=== PATIENT | female | born 1965 | race African-American/Black ===

== ENCOUNTER → 2017-12-06 | Outpatient (CLI) | payer BC, OTHER ==
[~2017-12-06] MED LIST: FLAGYL500 MG PO; IBUPROFEN 600600 M1 PO; IBUPROFEN 800800 M1 PO; IBUPROFEN 800800 MG PO; MEDROL DOSPAK21 TAB PO; NAPROSYN500 MG PO; NORFLEX100 MG PO; ZPAK PO
== END ==
LOC: RAD 03:18
DX: Z12.31 Encounter for screening mammogram for malignant neoplasm of breast (principal); D25.9 Leiomyoma of uterus, unspecified

== ENCOUNTER 2018-04-28 10:07 | Emergency (ER) | payer BC, OTHER ==
[~2018-04-28] VITALS: Ht 152.4 cm; Wt 59.0 kg
[2018-04-28] MEDS ORDERED: IBUPROFEN200 MG PO (10:37)
[2018-04-28 10:42] LABS: ABSOLUTE NEUTROPHILS 4.5 thou/uL (1.4-8.2); BASOPHILS 0.5 % (0.0-2.0); EOSINOPHILS 0.7 % (0.0-3.0); HEMATOCRIT 39.3 % (37.0-47.0); HEMOGLOBIN 13.6 gm/dL (12.0-15.0); LYMPHOCYTES 28.9 % (24.0-44.0); MCH 32.5 pg (26.0-34.0); MCHC 34.5 g/dL (28.0-37.0); MCV 94.1 fL (80.0-100.0); MONOCYTES 10.6 % (1.0-8.0); PLATELET COUNT 241 thou/uL (150-400); POLYS 59.3 % (36.0-66.0); RBC 4.18 mil/uL (4.20-5.00); RDW 12.8 % (10.5-14.5); WBC 7.6 thou/uL (4.0-11.0)
[2018-04-28 10:46] LABS: CALCIUM 8.8 mg/dL (8.5-10.1); CREATININE 0.7 mg/dL (0.6-1.0)
[2018-04-28 10:52] LABS: ALBUMIN 3.6 g/dL (3.4-5.0); TOTAL BILIRUBIN 0.4 mg/dL (<0.1-1.0); TOTAL PROTEIN 7.8 g/dL (6.4-8.2)
[2018-04-28 11:36] LABS: URINE BILIRUBIN NEGATIVE (Negative); URINE BLOOD 1+ (Negative); URINE CLARITY CLEAR; URINE COLOR YELLOW; URINE GLUCOSE-RANDOM* NEGATIVE (Negative); URINE KETONES NEGATIVE (Negative); URINE LEUKOCYTES-REFLEX NEGATIVE (Negative); URINE NITRITE-REFLEX NEGATIVE (Negative); URINE PROTEIN (DIPSTICK) NEGATIVE (Negative); URINE UROBILINOGEN 0.2 E.U./dl (0.2-1.0)
[2018-04-28 11:47] LABS: BACTERIA-REFLEX None Seen /HPF (None Seen); CASTS None Seen /LPF (None Seen); CRYSTALS None Seen /LPF (None Seen); SQUAMOUS 0-3 Few /LPF (0-3); URINE RBC 0-2 Rare /HPF (0-2); URINE WBC-REFLEX None Seen /HPF (0-5)
[2018-04-28] MEDS ORDERED: NORCO 5-325 TA1 EACH PO (13:18)
[2018-04-28] MEDS ORDERED: IBUPROFEN 600600 M1 PO (13:18)
[2018-04-28 13:25] VITALS: BP 130/75
[2018-04-28] MEDS ORDERED: FLAGYL500 M1 PO (13:26)
== END 2018-04-28 13:30 | disposition home or self-care (01) ==
LOC: ER 10:07
PROVIDERS: Physician Assistant
DX: D25.9 Leiomyoma of uterus, unspecified (principal); Z98.890 Other specified postprocedural states

== ENCOUNTER 2018-05-29 05:38 | Day surgery (SDC) | payer BC, OTHER ==
[~2018-05-29] VITALS: Ht 154.9 cm; Wt 61.2 kg
--- NOTE | ~2018-05-29 | O ---
[facility] [place] [address] [place] [address] OPERATIVE REPORT Name: ELINA JON Room #: 150-12 [facility]..#: [id number] Admission: 05/29/18 Attend Phys: Yaron Gallegos MD Discharge: Date of : 63 Report #: [id number] THIS REPORT FOR: //name// CC: Yaron Lau DATE OF SERVICE: 05/29/2018 PREOPERATIVE DIAGNOSIS: Abnormal uterine bleeding, endometrial fluid. POSTOPERATIVE DIAGNOSIS: Abnormal uterine bleeding, endocervical polyps. SURGEON: Yaron Gallegos M.D. WIND UP WORKER: None. ANESTHESIA: General. ESTIMATED BLOOD LOSS: 15 mL. PROCEDURE: Exam under anesthesia, MyoSure hysteroscopic endocervical polypectomy, dilatation and curettage. SPECIMENS: 1. Endocervical MyoSure curettings. 2. Endometrial MyoSure curettings with sharp curettings. COMPLICATIONS: None. FINDINGS: Exam under anesthesia revealed a globular irregular fibroid uterus measuring approximately 18-19 weeks' size with no palpable adnexal masses. Hysteroscopically, there were multiple endocervical polyps and irregular polypoid tissue with some neovascularization suspicious for malignancy. The endometrial cavity appeared normal with no evidence of submucosal fibroids or endometrial polyps or hyperplasia. Uterus sounded to a depth of 10 cm. DESCRIPTION OF PROCEDURE: The patient was seen in the preoperative holding area where consent was obtained for surgery. She was then brought to the operating room, administered general anesthesia, prepped and draped in a sterile fashion in dorsal lithotomy position. The anterior lip of the cervix was grasped using a single tooth tenaculum. Distending medium was normal saline and the hysteroscope was inserted under direct hysteroscopic vision with hysteroscopic findings dictated as above. The hysteroscope was removed and replaced by a MyoSure hysteroscope, which was inserted under direct hysteroscopic vision after first sounding the uterus to a depth of 10 cm and then dilating the cervix a bit [facility] [address] [address] OPERATIVE REPORT Name: ELINA JON Room #: 150-12 [facility].#: [id number] Admission: 05/29/18 Attend Phys: Yaron Gallegos MD Discharge: Date of : 63 Report #: [id number] to a #20 dilator. The MyoSure unit was then used to morcellate and remove the endocervical polyps and polypoid tissue. This was sent for pathology in a separate specimen as the sock was changed in the retrieval mechanism. The MyoSure unit was then used to perform a curettage of the entirety of the uterine corpus and lateral sides of the fundus under direct hysteroscopic vision. This tissue was sent as separate specimen. The cervix was then further dilated and a smooth sharp curette was then used to obtain curettings from the uterine fundus and also from the entirety of the endometrial cavity. These were sent for pathology as well with the endometrial curettings from the MyoSure unit. There was some mild bleeding after removal of the hysteroscope. This bleeding was emanating from the endocervix and sponge on a stick assisted in achieving hemostasis. All instrument and pad counts were correct. The patient was brought out of general anesthesia, taken to the recovery room. She was to be discharged home with specific instructions as to diet and activity and to call Dr. Gallegos should there be any fever, increasing pain or increasing bleeding. She was to see him in 8 days in the office for followup. By: [id number] Yaron Gallegos MD /nt
--- NOTE | ~2018-05-29 | PATH ---
[facility] [place] [address] PATHOLOGY RPT PROCEDURE Name: ELINA LOVING Room #: DEP [facility] M.R.#: [id number] Admission: 05/29/18 Date of : 63 Discharge: 05/29/18 Report #: [id number] Path Case #: [id number] [facility] Accession Number: [id number] . 01 Material submitted: . PART A: ENDOMETRIAL CURETTINGS PART B: ENDOCERVICAL CURETTINGS . 01 Clinical history: . Fibroids, menorrhagia, irregular cycles . 02 Diagnosis: A. Endometrium, "endometrial curettings": - Focally polypoid disordered proliferative phase endometrium with glandular and stromal breakdown without any evidence of hyperplasia or malignancy. . B. Endocervical curettings: - Endocervical/lower uterine segment polyp with focal crowded glands without any evidence of hyperplasia, dysplasia or malignancy. (SHA:jesse; 05/30/2018) QMS/05/30/2018 . 02 Electronically signed: . Nirmal Glez MD, Pathologist NPI- [id number] . 01 Gross description: . A. Received in formalin labeled "Elina Loving, endometrial curettings," is blood-tinged mucoid material containing small fragments of peguero membranous tissue, measuring 1.6 x 1.5 x 0.3 cm in aggregate dimensions. The specimen is filtered and submitted entirely in cassette A1. . B. Received in formalin labeled "Elina Loving, endocervical curettings," is blood-tinged mucoid material containing small fragments of peguero membranous tissue, measuring 2.2 x 0.9 x 0.3 cm in aggregate dimensions. The specimen is filtered and submitted entirely in cassette B1. (TSD; 05/29/2018) TOB/TOB . 02 Pathologist provided ICD-10: N85.9, N84.1, N92.0, N92.6 . 02 CPT . 591162, 176766 Specimen Comment: A courtesy [place] [address] PATHOLOGY RPT PROCEDURE Name: ELISEO LOVINGTARYN Schmitt Room #: DEP [facility] M.R.#: [id number] Admission: 05/29/18 Date of : 63 Discharge: 05/29/18 Report #: [id number] Path Case #: [id number] Specimen Comment: [phone], . Specimen Comment: Report sent to / DR BREWSTER Specimen Comment: A duplicate report has been generated due to demographic updates. Performed at: [address], [place], [place] [id number] MD Sim Chavis MD Phone: [phone] Performed at: [address] [id number] MD Diamante Charles MD Phone: [phone]
[~2018-05-29 05:38] MED LIST changes: +FLAGYL500 M1 PO; +IBUPROFEN200 MG PO; +NORCO 5-325 TA1 EACH PO; +PRILOSEC OTC20 MG PO
[2018-05-29 08:09] VITALS: BP 130/71
[2018-05-29 11:54] VITALS: BP 130/71
== END 2018-05-29 12:10 | disposition home or self-care (01) ==
LOC: TBA 05:38 → OR 05:38
DX: N93.9 Abnormal uterine and vaginal bleeding, unspecified (principal); N84.1 Polyp of cervix uteri; K21.9 Gastro-esophageal reflux disease without esophagitis; Z98.51 Tubal ligation status; Z98.890 Other specified postprocedural states; Z79.899 Other long term (current) drug therapy
CPT/HCPCS: 50010; 50101; 54171; 54172; 54173; 62110; 62900; 70005